=== PATIENT | female | born 1945 | race Hispanic/Latino ===

== ENCOUNTER 2017-06-30 13:27 | Emergency (ER) | payer MEDICARE, MEDICAID ==
[2017-06-30 14:40] VITALS: PULSE 85; RESP 18; TEMP 98.2; O2SAT 95
[2017-06-30 15:06] VITALS: BP 223/113
--- NOTE | 2017-06-30 15:36 | C.PDOC ---
History Of Present Illness PATIENT ELOPED PRIOR TO MY EVALUATION. PT WAS CALLED THREE TIMES DIFFERENT AREA OF ED WITHOUT ANSWER. PER RN, PATIENT WAS SEEN TO LEAVE ED, SAYING " I DONT WANT TO WAIT ANYMORE". Time Seen by Provider: 06/30/17 15:00 Chief Complaint (Nursing): Cough, Cold, Congestion Past Medical History Vital Signs: Last Vital Signs Temp 98.2 F 06/30/17 14:37 Pulse 85 06/30/17 14:37 Resp 18 06/30/17 14:37 BP 223/113 H 06/30/17 15:06 Pulse Ox 95 07/04/17 18:16 - Medical History PMH: HTN, Hypercholesterolemia, TIA Family History: States: Unknown Family Hx - Social History Hx Tobacco Use: No Hx Alcohol Use: No Hx Substance Use: No - Immunization History Hx Tetanus Toxoid Vaccination: No Hx Influenza Vaccination: No Hx Pneumococcal Vaccination: No ED Course And Treatment O2 Sat by Pulse Oximetry: 95 Disposition - Disposition Disposition: ELOPEMENT - ER ONLY Disposition Time: 15:30 Condition: GOOD Forms: [facility] (Wallisian) - Clinical Impression Clinical Impression: At high risk for elopement
== END 2017-06-30 15:06 | disposition left against medical advice (07) ==
LOC: C.ER 13:27
DX: Z02.89 Encounter for other administrative examinations (principal); R05 Cough